=== PATIENT | male | born 1960 | race Caucasian/White ===

== ENCOUNTER 2025-03-14 10:01 | Inpatient (IN) | payer OTHER ==
[~2025-03-14] VITALS: Ht 177.8 cm; Wt 90.2 kg
[2025-03-14 10:47] LABS: PLATELET COUNT (AUTO) 410 K/uL (150-450); RED BLOOD CELL COUNT(AUTO) 5.20 MIL/uL (4.50-5.90); RED CELL DISTRIBUTION WIDTH 18.0 % (11.5-14.5); WHITE BLOOD COUNT (AUTO) 10.1 K/uL (4.5-11.0)
[2025-03-14] MEDS ORDERED: METO25 PO (10:49)
[2025-03-14] MEDS ORDERED: LOSA-381 PO (10:49)
[2025-03-14] MEDS ORDERED: FLUO-342 PO (10:49)
[2025-03-14] MEDS ORDERED: HYDR-5256 PO (10:49)
[2025-03-14] MEDS ORDERED: ASPI-1450 PO (10:49)
[2025-03-14 10:50] LABS: CALCIUM, TOTAL 8.5 mg/dL (8.8-10.5); CREATININE 0.84 mg/dL (0.60-1.30); GLOMERULAR FILTR. RATE CALC > 60 mL/min (>60); GLUCOSE,RANDOM 97 mg/dL (70-110); SODIUM SERUM 135 mmol/L (136-145); UREA NITROGEN, BLOOD 8 mg/dL (7-18)
[2025-03-14 10:53] LABS: RBC MORPHOLOGY COMMENT ABNORMAL RBC MORPH
[2025-03-14 10:58] LABS: TROPONIN I-HIGH SENSITIVITY 54 ng/L (<76)
[2025-03-14 11:00] LABS: LACTIC ACID 0.8 mmol/L (0.4-2.0)
[2025-03-14 11:27] LABS: APPEARANCE,URINE CLEAR (CLEAR); GLUCOSE, URINE (UA) NEGATIVE (NEGATIVE); LEUKOCYTE ESTERASE ,URINE NEGATIVE (NEGATIVE); NITRATE,URINE NEGATIVE (NEGATIVE); OCCULT BLOOD,URINE NEGATIVE (NEGATIVE); PH,URINE DRUG SCREEN 7.0 (5.0-8.0); SPECIFIC GRAVITIY, URINE 1.018 (1.003-1.030)
[2025-03-14 11:33] LABS: ALCOHOL, URINE DRUG SCREEN NEGATIVE (NEGATIVE); AMPHET/METH SCREEN,URINE NEGATIVE (NEGATIVE); BARBITURATE SCREEN, URINE NEGATIVE (NEGATIVE); CANNABINOID SCREEN,URINE NEGATIVE (NEGATIVE); COCAINE SCREEN,URINE NEGATIVE (NEGATIVE); METHADONE SCREEN, URINE NEGATIVE (NEGATIVE)
[2025-03-14] MEDS: ASPIRIN 325 MG TABLET PO ONE (13:14)
[2025-03-14] MEDS ORDERED: ONDANSETRON HCL 4 MG/2 ML VIAL IVP PRN (14:00)
[2025-03-14] MEDS ORDERED: ZOLPIDEM TARTRATE 5 MG TABLET PO PRN (14:00)
[2025-03-14] MEDS ORDERED: BISACODYL 10 MG RECTAL RECTAL SUPPOSITORY PR PRN (14:00)
[2025-03-14] MEDS ORDERED: MAGNESIUM HYDROXIDE SUSPENSION 30 ML UDCUP PO PRN (14:00)
[2025-03-14] MEDS ORDERED: ACETAMINOPHEN 325 MG TABLET PO PRN (14:00)
[2025-03-14] MEDS ORDERED: HYDROCODONE/ACETAMINOPHEN 5-325 MG TABLET PO PRN (14:00)
[2025-03-14] MEDS ORDERED: MORPHINE SULFATE 4 MG/ML SYRINGE IVP PRN (14:00)
[2025-03-14 15:15] VITALS: BP 140/71; PULSE 60; RESP 18; TEMP 98.6; O2SAT 98
[2025-03-14] MEDS: HEPARIN SODIUM,PORCINE 5,000 UNITS/ML VIAL SQ SCH (16:11)
[2025-03-14] MEDS: DOCUSATE SODIUM 100 MG CAPSULE PO SCH (21:00)
[2025-03-14 23:45] VITALS: BP 144/79; PULSE 68; RESP 18; TEMP 98.1; O2SAT 97
[2025-03-15 04:23] VITALS: BP 139/79; PULSE 62; RESP 18; TEMP 97.7; O2SAT 97
[2025-03-15 07:27] VITALS: BP 146/80; PULSE 61; RESP 18; TEMP 97.9; O2SAT 95
[2025-03-15 07:39] LABS: PLATELET COUNT (AUTO) 412 K/uL (150-450); RED BLOOD CELL COUNT(AUTO) 5.21 MIL/uL (4.50-5.90); RED CELL DISTRIBUTION WIDTH 18.2 % (11.5-14.5); WHITE BLOOD COUNT (AUTO) 11.9 K/uL (4.5-11.0)
[2025-03-15 07:46] LABS: CALCIUM, TOTAL 8.3 mg/dL (8.8-10.5); CREATININE 0.74 mg/dL (0.60-1.30); GLOMERULAR FILTR. RATE CALC > 60 mL/min (>60); GLUCOSE,RANDOM 82 mg/dL (70-110); SODIUM SERUM 137 mmol/L (136-145); UREA NITROGEN, BLOOD 9 mg/dL (7-18)
[2025-03-15 08:46] LABS: RBC MORPHOLOGY COMMENT ABNORMAL RBC MORPH
[2025-03-15] MEDS: LOSARTAN POTASSIUM 25 MG TABLET PO SCH (08:48)
[2025-03-15] MEDS: ASPIRIN 81 MG CHEWABLE TABLET PO SCH (08:48)
[2025-03-15] MEDS: METOPROLOL TARTRATE 25 MG TABLET PO SCH (08:48)
[2025-03-15] MEDS: PANTOPRAZOLE SODIUM 40 MG DR TABLET PO SCH (08:48)
[2025-03-15 12:01] VITALS: BP 136/77; PULSE 58; RESP 18; TEMP 97.3; O2SAT 94
[2025-03-15 15:21] VITALS: BP 146/86; PULSE 60; RESP 18; TEMP 97.9; O2SAT 95
[2025-03-15 19:13] VITALS: BP 146/81; PULSE 66; RESP 18; TEMP 97.5; O2SAT 97
[2025-03-15 23:27] VITALS: BP 157/83; PULSE 59; RESP 17; TEMP 97.9; O2SAT 97
[2025-03-16 03:59] VITALS: BP 136/78; PULSE 60; RESP 18; TEMP 98.2; O2SAT 98
[2025-03-16] MEDS ORDERED: ATORVASTATIN CALCIUM 20 MG TABLET PO SCH (09:00)
== END 2025-03-16 06:30 | DRG 951 ==
LOC: EMS 10:05 → EDH 12:57 → 5S 14:50
PROVIDERS: ADMIT Internal Medicine; ATTEND Internal Medicine
DX: Z76.1 Encounter for health supervision and care of foundling (principal); I10 Essential (primary) hypertension; F41.9 Anxiety disorder, unspecified; R05.3 Chronic cough; F17.210 Nicotine dependence, cigarettes, uncomplicated; E78.5 Hyperlipidemia, unspecified; E11.9 Type 2 diabetes mellitus without complications; I25.10 Atherosclerotic heart disease of native coronary artery without angina pectoris; J44.9 Chronic obstructive pulmonary disease, unspecified; F99 Mental disorder, not otherwise specified; K40.90 Unilateral inguinal hernia, without obstruction or gangrene, not specified as recurrent; Z79.82 Long term (current) use of aspirin; Z95.1 Presence of aortocoronary bypass graft
CPT/HCPCS: 71045; 80048; 80307; 81001; 83605; 83690; 83880; 84484; 85025; 93005; 93306; 99285; J1644; 36415-L1; 36415-TC